=== PATIENT | male | born 1980 | race Caucasian/White ===

== ENCOUNTER 2021-08-14 10:08 | Emergency (ER) | payer MEDICAID ==
[~2021-08-14] VITALS: Ht 172.7 cm; Wt 78.0 kg
[2021-08-14 11:06] LABS: BASOPHILS % 0.3 % (0.0-2.0); EOSINOPHILS % 2.3 % (0.0-5.0); HEMATOCRIT. 46.2 % (42.0-52.0); LYMPHOCYTES % 25.7 % (20.0-50.0); MEAN CORPUSCULAR HEMOGLOBIN 32.3 pg (28.0-32.0); MEAN CORPUSCULAR VOLUME 93.5 fL (80.0-94.0); MEAN PLATELET VOLUME 7.1 fl (7.4-10.4); MONOCYTES % 5.5 % (2.0-8.0); NEUTROPHILS % 66.2 % (40.0-76.0); PLATELET 151 x1000/uL (130-400); RED BLOOD CELL COUNT 4.94 mill/uL (4.7-6.1); RED CELL DISTRIBUTION WIDTH 13.2 % (11.6-14.6)
[2021-08-14 11:09] LABS: CHLORIDE 106 mEq/L (98-107)
[2021-08-14 11:33] LABS: ETHANOL BLOOD 460 mg/dL
[2021-08-14] MEDS ORDERED: TOPUD PO (12:55)
[2021-08-14 13:28] VITALS: BP 111/78
== END 2021-08-14 13:31 | disposition home or self-care (01) ==
LOC: ER 10:08
DX: F10.129 Alcohol abuse with intoxication, unspecified (principal); Y90.8 Blood alcohol level of 240 mg/100 ml or more; I49.8 Other specified cardiac arrhythmias; W18.30XA Fall on same level, unspecified, initial encounter; Y08.89XA Assault by other specified means, initial encounter; Y93.89 Activity, other specified; Y92.9 Unspecified place or not applicable
CPT/HCPCS: 36415; 70486; 71045; 80053; 80320; 82962; 84484; 85025; 93005; 99285; G0480

== ENCOUNTER 2023-04-03 03:27 | Emergency (ER) | payer MEDICAID ==
[~2023-04-03] VITALS: Ht 177.8 cm; Wt 80.0 kg
[~2023-04-03 03:27] MED LIST: TOPUD PO
[2023-04-03 03:36] VITALS: BP 135/92; PULSE 80; RESP 18; TEMP 98.3; O2SAT 98
[2023-04-03 04:54] LABS: BASOPHILS % 0.3 % (0.0-2.0); EOSINOPHILS % 0.4 % (0.0-5.0); HEMATOCRIT. 47.1 % (42.0-52.0); HEMOGLOBIN. 15.7 g/dL (14.0-18.0); LYMPHOCYTES % 18.9 % (20.0-50.0); MEAN CORPUSCULAR HGB CONC 33.4 g/dL (31.0-37.0); MEAN CORPUSCULAR VOLUME 98.8 fL (80.0-94.0); MEAN PLATELET VOLUME 7.3 fl (7.4-10.4); MONOCYTES % 9.2 % (2.0-8.0); NEUTROPHILS % 71.2 % (40.0-76.0); PLATELET 76 x1000/uL (130-400); RED BLOOD CELL COUNT 4.77 mill/uL (4.7-6.1); RED CELL DISTRIBUTION WIDTH 14.8 % (11.6-14.6); WHITE BLOOD COUNT 6.8 x1000/uL (4.5-11.0)
[2023-04-03 06:38] LABS: ALANINE AMINOTRANSFERASE 63 IU/L (10-49); ALBUMIN 4.8 g/dL (3.2-4.8); ASPARTATE AMINOTRANSFERASE 84 IU/L (<34); BILIRUBIN TOTAL 2.8 mg/dL (0.1-1.0); CALCIUM 10.3 mg/dL (8.7-10.4); CARBON DIOXIDE 20 mEq/L (21-32); CHLORIDE 98 mEq/L (98-107); CREATININE 0.8 mg/dL (0.6-1.3); GLUCOSE 90 mg/dL (70-105); POTASSIUM 3.5 mEq/L (3.5-5.1); PROTEIN TOTAL 8.6 g/dL (6.0-8.3); SODIUM 137 mEq/L (136-145); UREA NITROGEN BLOOD 9 mg/dL (9-23)
[2023-04-03 07:21] LABS: ETHANOL BLOOD < 10 mg/dL (<10)
== END 2023-04-03 13:33 | disposition left against medical advice (07) ==
LOC: ER 03:44
DX: Z53.21 Procedure and treatment not carried out due to patient leaving prior to being seen by health care provider (principal)
CPT/HCPCS: 36415; 80053; 80320; 85025; 99281; G0480